=== PATIENT | female | born 1975 | race Caucasian/White ===

== ENCOUNTER 2021-02-25 09:01 | Inpatient (IN) | payer OTHER ==
[2021-02-25] MEDS ORDERED: CEFAZOLIN 2 GM in Premix Bag 1 BAG IVPB SCH (11:15)
[2021-02-25] MEDS ORDERED: Fentanyl 100 MCG/2 ML VIAL ONE ×4 (11:33→16:35)
[2021-02-25 11:41] LABS: #Eosinphils 0.2 thou/uL (0.0-0.7); #Lymphocytes 2.5 thou/uL (1.20-3.40); #Monocytes 0.7 thou/uL (0.11-0.59); #Neutrophils 6.7 thou/uL (1.40-6.50); %Basophils 0.4 % (0.0-1.0); %Eosinophils 2.4 % (0.0-10.0); %Lymphocytes 24.3 % (21.0-51.0); %Monocytes 6.9 % (0.0-10.0); Hemoglobin 11.5 g/dL (12.0-16.0); Mean Corpuscular Hemoglobin 32.7 pg (27.0-31.0); Mean Corpuscular Volume 98.9 fL (78.0-98.0); Mean Platelet Volume 7.6 fL (7.4-10.4); Platelet Count 290 thou/uL (130-400); RBC Distribution Width 13.6 % (11.5-14.5); Red Blood Cell (RBC) Count 3.53 mill/uL (4.20-5.40); White Blood Cell (WBC) Count 10.2 thou/uL (4.8-10.8)
[2021-02-25] MEDS ORDERED: Cefepime 2 GM VIAL ONE (11:42)
[2021-02-25 12:01] LABS: ALT (SGPT) 9 U/L (8-55); AST (SGOT) 14 U/L (5-34); Albumin 4.1 g/dL (3.5-5.0); Alkaline Phosphatase 55 U/L (40-110); Anion Gap 13 mmol/L (10-20); BUN (Urea Nitrogen) 12 mg/dL (7.0-18.7); Bilirubin, Total 0.5 mg/dL (0.2-1.2); Calc. Creatinine Clearance 0 mL/min (70-130); Calcium 9.3 mg/dL (7.8-10.44); Carbon Dioxide 25 mmol/L (22-29); Chloride 103 mmol/L (98-107); Glucose 82 mg/dL (70-105); Potassium 4.1 mmol/L (3.5-5.1); Protein, Total 7.1 g/dL (6.0-8.3); Sodium 137 mmol/L (136-145)
[2021-02-25] MEDS ORDERED: Zolpidem Tartrate 5 MG TAB PO PRN (12:11)
[2021-02-25] MEDS ORDERED: Acetaminophen 325 MG TAB PO PRN (12:11)
[2021-02-25] MEDS ORDERED: Senokot S 8.6-50 MG TAB PO PRN (12:11)
[2021-02-25] MEDS ORDERED: Bisacodyl 10 MG SUPP PR PRN (12:11)
[2021-02-25] MEDS ORDERED: Calcium Carbonate 500 MG ChewTAB PO PRN (12:11)
[2021-02-25] MEDS ORDERED: Guaifenesin DM 100-10/5 ML UDCUP PO PRN (12:11)
[2021-02-25] MEDS ORDERED: Ondansetron PF 4 MG/2 ML Vial IVP PRN (12:11)
[2021-02-25] MEDS ORDERED: Loperamide HCl 2 MG CAP PO PRN (12:11)
[2021-02-25] MEDS ORDERED: Nicotine 21 MG PATCH TD PRN (12:11)
[2021-02-25] MEDS ORDERED: Vancomycin 1 GM/200 ML BAG ONE (12:40)
[2021-02-25] MEDS ORDERED: Sodium Chloride 0.9% 10 ML ONE (13:42)
[2021-02-25] MEDS ORDERED: Piperacillin/Tazobactam 3.375 GM in Sodium Chloride 0.9% 100 ML IVPB SCH (13:45)
[2021-02-25] MEDS ORDERED: Neomycin-Polymyxin 1 ML AMP ONE (16:16)
[2021-02-25] MEDS ORDERED: Dexamethasone 20 MG/5 ML VIAL ONE (16:54)
[2021-02-25] MEDS ORDERED: Lidocaine 1% PF 5 ML VIAL ONE (16:54)
[2021-02-25] MEDS ORDERED: Ketorolac Tromethamine 30 MG/ML VIAL ONE (16:54)
[2021-02-25] MEDS ORDERED: Ondansetron PF 4 MG/2 ML Vial ONE (16:54)
[2021-02-25] MEDS ORDERED: Promethazine HCl 25 MG/ML VIAL IVPB PRN (17:48)
[2021-02-25] MEDS ORDERED: HYDROmorphone 2 MG/ML VIAL SLOW IVP PRN (17:48)
[2021-02-25] MEDS ORDERED: Promethazine HCl 25 MG/ML VIAL IM PRN (17:48)
[2021-02-25] MEDS ORDERED: PACU-Morphine 4MG/ML VIAL SLOW IVP PRN (17:48)
[2021-02-25] MEDS ORDERED: Morphine Sulfate 2 MG/ML SYRINGE SLOW IVP PRN (17:48)
[2021-02-25] MEDS ORDERED: Ondansetron HCl/PF 4 MG/2 ML Vial IVP PRN (17:48)
[2021-02-25] MEDS ORDERED: Piperacillin/Tazobactam 4.5 GM in Sodium Chloride 0.9% 100 ML IVPB SCH (18:00)
[2021-02-25] MEDS: Piperacillin/Tazobactam 3.375 GM in Sodium Chloride 0.9% 100 ML IVPB SCH (20:03)
[2021-02-25] MEDS: Sodium Chloride 0.9% 1,000 ML IV SCH ×2 (20:04→21:06)
[2021-02-25] MEDS: Ondansetron ODT 4 MG TAB PO PRN (21:04)
[2021-02-25] MEDS: ALPRAZolam 1 MG TAB PO SCH (21:04)
[2021-02-25] MEDS: Famotidine 20 MG TAB PO SCH (21:05)
[2021-02-25 21:20] VITALS: BMI 29.2
[2021-02-26] MEDS: Vancomycin 1 GM in Premix Bag 1 BAG IVPB SCH ×2 (01:04→14:28)
[2021-02-26] MEDS: Piperacillin/Tazobactam 3.375 GM in Sodium Chloride 0.9% 100 ML IVPB SCH ×3 (02:46→17:34)
[2021-02-26 05:55] LABS: #Lymphocytes 0.8 thou/uL (1.20-3.40); #Monocytes 0.2 thou/uL (0.11-0.59); #Neutrophils 7.1 thou/uL (1.40-6.50); %Eosinophils 0.1 % (0.0-10.0); %Lymphocytes 10.2 % (21.0-51.0); %Monocytes 2.5 % (0.0-10.0); %Neutrophils 87.1 % (42.0-75.0); Hemoglobin 10.9 g/dL (12.0-16.0); Mean Corpuscular HGB CONC 33.4 g/dL (32.0-36.0); Mean Corpuscular Hemoglobin 32.7 pg (27.0-31.0); Mean Corpuscular Volume 97.8 fL (78.0-98.0); Mean Platelet Volume 7.7 fL (7.4-10.4); Platelet Count 249 thou/uL (130-400); RBC Distribution Width 13.4 % (11.5-14.5); Red Blood Cell (RBC) Count 3.33 mill/uL (4.20-5.40); White Blood Cell (WBC) Count 8.2 thou/uL (4.8-10.8)
[2021-02-26 06:23] LABS: Anion Gap 10 mmol/L (10-20); BUN (Urea Nitrogen) 11 mg/dL (7.0-18.7); Calc. Creatinine Clearance 107 mL/min (70-130); Carbon Dioxide 24 mmol/L (22-29); Chloride 105 mmol/L (98-107); Glucose 125 mg/dL (70-105); Potassium 4.3 mmol/L (3.5-5.1); Sodium 135 mmol/L (136-145)
[2021-02-26] MEDS: Enoxaparin Sodium 40 MG/0.4 ML SYRINGE SC SCH (08:48)
[2021-02-26] MEDS: Famotidine 20 MG TAB PO SCH ×2 (08:48→20:42)
[2021-02-26] MEDS: ALPRAZolam 1 MG TAB PO SCH ×2 (08:48→20:41)
[2021-02-26] MEDS: Ondansetron ODT 4 MG TAB PO PRN ×2 (09:28→18:26)
[2021-02-26] MEDS: Sodium Chloride 0.9% 1,000 ML IV SCH (14:00)
[2021-02-26] MEDS: HYDROcodone/Acetaminophen 10/325 mg Tablet PO PRN (15:20)
[2021-02-26] MEDS: Morphine 4 MG/ML VIAL SLOW IVP PRN (17:38)
[2021-02-26 23:51] LABS: Vancomycin, Trough 11.2 ug/mL
[2021-02-27] MEDS: Vancomycin 1 GM in Premix Bag 1 BAG IVPB SCH ×2 (00:15→09:20)
[2021-02-27] MEDS: HYDROcodone/Acetaminophen 10/325 mg Tablet PO PRN ×2 (00:20→11:47)
[2021-02-27] MEDS: Morphine 4 MG/ML VIAL SLOW IVP PRN (00:22)
[2021-02-27] MEDS ORDERED: Ketorolac Tromethamine 30 MG/ML VIAL ONE (02:12)
[2021-02-27] MEDS: Piperacillin/Tazobactam 3.375 GM in Sodium Chloride 0.9% 100 ML IVPB SCH (02:15)
[2021-02-27] MEDS ORDERED: Ketorolac Tromethamine 30 MG/ML VIAL IVP SCH (02:15)
[2021-02-27 05:48] LABS: #Eosinphils 0.1 thou/uL (0.0-0.7); #Lymphocytes 2.7 thou/uL (1.20-3.40); #Monocytes 0.5 thou/uL (0.11-0.59); #Neutrophils 4.6 thou/uL (1.40-6.50); %Basophils 0.5 % (0.0-1.0); %Eosinophils 1.6 % (0.0-10.0); %Lymphocytes 33.8 % (21.0-51.0); %Monocytes 6.1 % (0.0-10.0); %Neutrophils 58.1 % (42.0-75.0); Hemoglobin 10.6 g/dL (12.0-16.0); Mean Corpuscular HGB CONC 33.2 g/dL (32.0-36.0); Mean Corpuscular Hemoglobin 32.6 pg (27.0-31.0); Mean Corpuscular Volume 98.5 fL (78.0-98.0); Mean Platelet Volume 7.6 fL (7.4-10.4); Platelet Count 245 thou/uL (130-400); RBC Distribution Width 13.6 % (11.5-14.5); Red Blood Cell (RBC) Count 3.23 mill/uL (4.20-5.40); White Blood Cell (WBC) Count 7.9 thou/uL (4.8-10.8)
[2021-02-27 08:25] VITALS: BP 156/86; TEMP 98.3
[2021-02-27] MEDS: Enoxaparin Sodium 40 MG/0.4 ML SYRINGE SC SCH (09:21)
[2021-02-27] MEDS: Famotidine 20 MG TAB PO SCH (09:21)
[2021-02-27] MEDS: ALPRAZolam 1 MG TAB PO SCH (09:39)
[2021-02-27] MEDS: Ondansetron ODT 4 MG TAB PO PRN (11:47)
== END 2021-02-27 13:23 | disposition home or self-care (01) | DRG 581 ==
LOC: ERS 09:01 → ERHOLD 12:00 → PACU-TCU 14:47 → SURG A 18:48
PROVIDERS: ADMIT Internal Medicine; ATTEND Internal Medicine
PROC: 0J9H0ZZ Drainage of Left Lower Arm Subcutaneous Tissue and Fascia, Open Approach (ICD-10-PCS; principal; 2021-02-25)
DX: L02.414 Cutaneous abscess of left upper limb (principal); L03.114 Cellulitis of left upper limb; I10 Essential (primary) hypertension; F41.9 Anxiety disorder, unspecified; F17.210 Nicotine dependence, cigarettes, uncomplicated; D53.9 Nutritional anemia, unspecified; M65.132 Other infective (teno)synovitis, left wrist; F31.9 Bipolar disorder, unspecified; Z20.822 Contact with and (suspected) exposure to COVID-19
CPT/HCPCS: 36415; 80048; 80053; 80202; 83605; 85025; 86140; 87040; 87070; 87077; 87205; 96365; 96367; 96375; 96376; J0692; J1100; J1650; J1885; J2270; J2405; J2543; J3010; J3370; J3490; J7050; Q0162